=== PATIENT | male | born 1980 ===

== ENCOUNTER → 2021-01-31 | Outpatient (REF) | payer OTHER ==
[2021-02-07 10:11] LABS: SEMEN APPEARANCE OPAQUE (OPAQUE); SEMEN VISCOSITY LIQUID (LIQUID); SEMEN VOLUME 1.5 ml (2.0-5.0)
[2021-02-07 10:12] LABS: SPERM CONCENTRATION 49.1 M/ml (>=15.0); WBC CONCENTRATION <=1 M/ml (<=1 M/ml)
== END ==
LOC: M LAB REF 09:45
PROVIDERS: ATTEND Physician Assistant
DX: N46.9 Male infertility, unspecified (principal)

== ENCOUNTER → 2021-02-17 | Outpatient (REF) | payer OTHER ==
[2021-02-17 09:35] LABS: SEMEN APPEARANCE OPAQUE (OPAQUE); SEMEN VISCOSITY LIQUID (LIQUID); SEMEN VOLUME 1.5 ml (2.0-5.0); SEMEN pH 8.5 (7.0-8.0); WBC CONCENTRATION <=1 M/ml (<=1 M/ml)
[2021-02-17 09:36] LABS: SPERM CONCENTRATION 46.1 M/ml (>=15.0)
== END ==
LOC: M LAB REF 09:18
PROVIDERS: ATTEND Physician Assistant
DX: N46.9 Male infertility, unspecified (principal)